=== PATIENT | male | born 1950 | race Two or more races ===

== ENCOUNTER 2018-11-08 11:46 | Outpatient (CLI) | payer OTHER | END 2018-11-08 13:25 | disposition home or self-care (01) | LOC: RAD 501 11:46 | DX: M54.5 Low back pain (principal) ==

== ENCOUNTER 2018-11-28 08:35 | Outpatient (CLI) | payer OTHER | END 2018-11-28 08:48 | disposition home or self-care (01) | LOC: MRI 08:35 | DX: M54.5 Low back pain (principal) | CPT/HCPCS: 72148 ==

== ENCOUNTER 2020-12-08 07:30 | Outpatient (CLI) | payer OTHER | END 2020-12-08 07:36 | disposition home or self-care (01) | LOC: RAD 07:30 | PROVIDERS: ATTEND Ophthalmology | DX: I15.8 Other secondary hypertension (principal); I10 Essential (primary) hypertension ==

== ENCOUNTER 2024-01-27 07:45 | Outpatient (CLI) | payer OTHER | END 2024-01-27 07:51 | disposition home or self-care (01) | LOC: RAD 07:45 | PROVIDERS: ATTEND General Practice | DX: M54.2 Cervicalgia (principal) ==